=== PATIENT | female | born 1965 | race Caucasian/White ===

== ENCOUNTER 2021-12-08 06:48 | Day surgery (SDC) | payer OTHER ==
[~2021-12-08] VITALS: Ht 157.5 cm; Wt 77.6 kg
[2021-12-08] MEDS ORDERED: INDOMETHACIN 50 MG SUPP.RECT RC ONE (07:30)
[2021-12-08] MEDS ORDERED: NEOSTIGMINE METHYLSULFATE 1 MG/ML, 10 ML VIAL IVP ONE (07:45)
[2021-12-08] MEDS ORDERED: MIDAZOLAM HCL 5 MG/5 ML VIAL IVP ONE (07:45)
[2021-12-08] MEDS ORDERED: ROCURONIUM BROMIDE 10 MG/ML (ZEMURON) IV ONE (07:45)
[2021-12-08] MEDS ORDERED: SUCCINYLCHOLINE CHLORIDE 20 MG/ML(QUELICIN) IVP ONE (07:45)
[2021-12-08] MEDS ORDERED: GLYCOPYRROLATE 0.2 MG/ML VIAL IJ ONE (07:45)
[2021-12-08] MEDS ORDERED: LR 1,000 ML IV.SOLN IV ONE (07:45)
[2021-12-08] MEDS ORDERED: FLUMAZENIL 0.1 MG/ML IVP ONE (07:45)
[2021-12-08] MEDS ORDERED: SEVOFLURANE 15 MIN GAS INH ONE (07:45)
[2021-12-08] MEDS ORDERED: PROPOFOL 200MG/ 20ML VIAL (DIPRIVAN) IV ONE (07:45)
[2021-12-08] MEDS ORDERED: ONDANSETRON HCL 4 MG/2 ML VIAL IVP ONE (07:45)
[2021-12-08] MEDS ORDERED: iohexoL 350 mgI/mL, 100 ML INFUS..BTL IV ONE (08:37)
[2021-12-08] MEDS ORDERED: METOCLOPRAMIDE HCL 10 MG/2 ML VIAL IVP PRN (08:45)
[2021-12-08] MEDS ORDERED: KETOROLAC TROMETHAMINE 30 MG VIAL IVP PRN (08:45)
[2021-12-08] MEDS ORDERED: HYDROmorphone 1 MG/ML INJ. CARTRIDGE IVP PRN ×2 (08:45)
[2021-12-08] MEDS ORDERED: MIDAZOLAM HCL 5 MG/5 ML VIAL IVP PRN (08:45)
[2021-12-08] MEDS ORDERED: IBUPROFEN 600 MG TABLET PO ONE (08:45)
[2021-12-08 13:59] VITALS: BP_SYST 141
== END 2021-12-08 11:25 | disposition home or self-care (01) ==
LOC: SDS 06:48 → SMU 06:49 → SDS 11:25
PROVIDERS: ATTEND Internal Medicine Gastroenterology
DX: K83.8 Other specified diseases of biliary tract (principal); K80.50 Calculus of bile duct without cholangitis or cholecystitis without obstruction; K21.9 Gastro-esophageal reflux disease without esophagitis; E66.01 Morbid (severe) obesity due to excess calories; Z88.1 Allergy status to other antibiotic agents; F41.9 Anxiety disorder, unspecified; Z90.49 Acquired absence of other specified parts of digestive tract; Z90.710 Acquired absence of both cervix and uterus; Z20.822 Contact with and (suspected) exposure to COVID-19; Z79.899 Other long term (current) drug therapy
CPT/HCPCS: 36415; 43262; 43264; 74328; U0003; J3490 ×2; J2250; J2405; J2704; J0330; Q9967; J7120; C1769; J2710; 74330-TC